=== PATIENT | female | born 1965 | race Caucasian/White ===

== ENCOUNTER 2017-02-03 14:23 | Emergency (ER) | payer SELFPAY | END 2017-02-03 14:28 | disposition home or self-care (01) | LOC: ER 14:23 | PROC: 2W3TXYZ Immobilization of Left Foot using Other Device (ICD-10-PCS; principal; 2017-02-03) | DX: S93.402A Sprain of unspecified ligament of left ankle, initial encounter (principal); S93.602A Unspecified sprain of left foot, initial encounter; F17.200 Nicotine dependence, unspecified, uncomplicated; Z88.5 Allergy status to narcotic agent; Z88.8 Allergy status to other drugs, medicaments and biological substances | CPT/HCPCS: 73610-LT; 73630-LT; 99283; A9270-GY ==